=== PATIENT | female | born 1985 | race African-American/Black ===

== ENCOUNTER 2019-12-31 19:00 | Inpatient (IN) | payer OTHER ==
[2019-12-31 20:38] VITALS: BMI 34.5
[2019-12-31 20:41] LABS: BASO % 0.4 % (0-2.0); EOS % 0.8 % (0-4.5); HEMATOCRIT 34.6 % (32.4-45.2); HEMOGLOBIN 11.4 GM/dL (10.7-15.3); LYMPH % 16.3 % (8-40); MCH 26.8 pg (25.7-33.7); MCHC 33.1 g/dl (32.0-36.0); MEAN CELL VOLUME 81.1 fl (80-96); MEAN PLT VOLUME 9.1 fl (7.5-11.1); MONO % 8.1 % (3.8-10.2); NEUT % 74.4 % (42.8-82.8); PLATELET COUNT 224 K/MM3 (134-434); RBC 4.26 M/mm3 (3.60-5.2); RDW 14.7 % (11.6-15.6); WHITE BLOOD COUNT 11.8 K/mm3 (4.0-10.0)
[2019-12-31 20:52] LABS: INR 1.03 (0.83-1.09); PROTHROMBIN TIME (PATIENT) 12.1 SEC (9.7-13.0)
[2019-12-31 20:54] LABS: ACTIVATED PTT 29.6 SECONDS (25.2-36.5)
[2019-12-31] MEDS ORDERED: DINOPROSTONE 10 MG VAGINAL SUPPOSITORY VG ONE (21:08)
--- NOTE | 2019-12-31 21:16 | HP ---
Past Medical History - Admission History Source: Patient - Past Medical History ...: 5 ...Para: 3 ...Term: 3 ...: 0 ...Spon : 0 ...Induced : 1 ...Living Children: 3 ...Multiple Gestation: 0 ...LMP: 03/24/19 ... Weeks Gestation by Dates: 40.2 ...EDC by Dates: 12/29/19 ...EDC by Sono: 01/04/20 - Past Surgical History Past Surgical History: Yes: None Hx Myomectomy: No Hx Transabdominal Cerclage: No - Smoking History Smoking history: Never smoked Have you smoked in the past 12 months: No - Alcohol/Substance Use Hx Alcohol Use: No Home Medications - Allergies Allergies/Adverse Reactions: Allergies Allergy/AdvReac Type Severity Reaction Status Date / Time No Known Allergies Allergy Verified 12/31/19 19:39 - Home Medications Home Medications: Ambulatory Orders NK [No Known Home Medication] 12/31/19 Review of Systems - Review of Systems Constitutional: reports: No Symptoms Cardiovascular: reports: No Symptoms Respiratory: reports: No Symptoms Gastrointestinal: reports: No Symptoms Genitourinary: reports: No Symptoms Physical Exam - Maternity Vital Signs: Vital Signs Temperature 98.3 F 12/31/19 19:00 Pulse Rate 68 12/31/19 19:00 Respiratory Rate 20 12/31/19 19:00 Blood Pressure 123/75 12/31/19 19:00 O2 Sat by Pulse Oximetry (%) Constitutional: Yes: Well Nourished Cardiovascular: Yes: WNL Lungs: Clear to auscultation - Abdominal Exam/OB Fundal Height: 39 Number of Fetuses: Single Presentation: Vertex Contractions: Yes Regularity: Irregular Intensity: Unaware Monitor Mode: External Heart Rate (range): 140 Category: I Accelerations: Uniform Decelerations: None - Vaginal Exam/OB Dilatation (cm): 1 Effacement (%): 0 Amniotic Membrane Status: Intact Station: -3 Hemorrhage Risk Assessment - Risk Factors Medium Risk Factors: Yes: None High Risk Factors: Yes: None Risk Score: 1 Risk Level: Medium Risk Assessment/Plan [id number] @ 40w2d,here for Induction of labor GBS negative,AMA,NIPS Negative,obesity, Echogenic focus in heart-Feal ECHO wnl Poor historian,does not remember most of history. Admit to labor and delivery labs Informed consent,including posibility of csection, blood transfusion also discussed, patient understands, verbalised understanding. Cervidil pain management discussed anticipate vaginal delivery
[2019-12-31 21:17] LABS: ALBUMIN 2.9 g/dl (3.4-5.0); BILIRUBIN,TOTAL 0.2 mg/dL (0.2-1); CALCIUM 8.7 mg/dL (8.5-10.1); CREATININE 0.6 mg/dL (0.55-1.3); TOT PROT 7.1 g/dl (6.4-8.2)
[2019-12-31] MEDS: ELECTROLYTE-148 SOLN 1,000 ML IV SCH (22:00)
[2020-01-01] MEDS: ELECTROLYTE-148 SOLN 1,000 ML IV SCH ×3 (06:00→20:35)
[2020-01-01] MEDS ORDERED: OXYTOCIN 30 UNITS in 0.9% NS 30 UNIT/500 ML INFUS.BAG IVPB ONE ×2 (09:37→20:28)
[2020-01-01] MEDS ORDERED: OXYTOCIN 30 UNITS in 0.9% NS 30 UNIT/500 ML INFUS.BAG IVPB SCH (09:40)
--- NOTE | 2020-01-01 10:02 | PD.OB.PROG ---
Past Medical History - Primary Care Physician PCP:: Karen Pierre Documenting Provider Type: Laborist - Admission Chief Complaint: Induction; to assess further plans. History of Present Illness: Multiparous, term. Cervidil last night. Some ctx. FH is cat 1. Limitations to Obtaining History: No Limitations - Nursing Documentation Maternal Triage Index: Maternal Triage Index ( Priority 5, Requesting MFTI) Hemorrhage Risk Assessment: Risk Level Low Risk High Level Risk Factors for None Hemorrhage Medium Level Risk Factors for None of the above Hemorrhage Low Level Risk Factors for No previous uterine incis,Pickard Pregnaancy, Hemorrhage Four (4) or less previous,No known bleeding,No history of PPH Nursing Documentation Reviewed: Yes - Past Medical History COUNTER HELPER: Denies/None Cardio/Vascular: Denies/None Pulmonary: Denies/None Gastrointestinal: Denies/None Hepatobiliary: Denies/None Renal/: Denies/None ...: 5 ...Para: 3 ...Term: 3 ...: 0 ...Spon : 0 ...Induced : 1 ...Living Children: 3 ...Multiple Gestation: 0 ...LMP: 03/24/19 ... Weeks Gestation by Dates: 40.2 ...EDC by Dates: 12/29/19 ...EDC by Sono: 01/04/20 Heme/Onc: Denies/None Infectious Disease: Denies/None Psych: Denies/None Musculoskeletal: Denies/None Rheumatology: Denies/None ENT: Denies/None Endocrine: Denies/None Dermatology: Denies/None - Past Surgical History Past Surgical History: Yes: None - Smoking History Smoking history: Never smoked Have you smoked in the past 12 months: No - Alcohol/Substance Use Hx Alcohol Use: No Review of Systems - Review of Systems Constitutional: reports: No Symptoms Eyes: reports: No Symptoms HENT: reports: No Symptoms Neck: reports: No Symptoms Cardiovascular: reports: No Symptoms Respiratory: reports: No Symptoms Gastrointestinal: reports: No Symptoms Genitourinary: reports: No Symptoms Breasts: reports: No Symptoms Reported Musculoskeletal: reports: No Symptoms Integumentary: reports: No Symptoms Neurological: reports: No Symptoms Endocrine: reports: No Symptoms Hematology/Lymphatic: reports: No Symptoms Psychiatric: reports: No Symptoms Physical Exam - Obstetrical Vital Signs: Vital Signs Temperature 98.1 F 10/13/20 08:00 Pulse Rate 89 01/01/20 08:00 Respiratory Rate 20 01/01/20 08:00 Blood Pressure 103/67 01/01/20 08:00 O2 Sat by Pulse Oximetry (%) Constitutional: Yes: Well Nourished, No Distress, Calm Eyes: Yes: WNL, Conjunctiva Clear, EOM Intact HENT: Yes: WNL, Atraumatic, Normocephalic Neck: Yes: WNL, Supple, Trachea Midline Cardiovascular: Yes: WNL, Regular Rate and Rhythm Lungs: Clear to auscultation Breast(s): Yes: WNL - Abdominal Exam/OB Fundal Height: 40 Number of Fetuses: Single Presentation: Vertex Contractions: Yes Regularity: Regular Intensity: Mild Monitor Mode: External Heart Rate (range): 140 Category: I Accelerations: Uniform Decelerations: None - Vaginal Exam/OB Vaginal Exam Deferred: No Vaginal Bleeding: No Dilatation (cm): 2 Effacement (%): 50 Amniotic Membrane Status: Intact Station: -2 - Physical Exam Musculoskeletal: Yes: WNL Extremities: Yes: WNL Integumentary: Yes: WNL ...Motor Strength: WNL Psychiatric: Yes: WNL - Labs Lab Results: CBC, BMP 12/31/19 20:28 12/31/19 20:28 Problem List - Problems (1) Encounter for induction of labor Code(s): Z34.90 - ENCNTR FOR SUPRVSN OF NORMAL , UNSP, UNSP TRIMESTER Assessment/Plan Patient is here for induction. On examination she is "inducible". heart category 1. Bedside sonogram done to assess presenting part. It is vertex. Discussed with Dr. Castillo. My recommendation is to augment labor with oxytocin and do artificial rupture of membranes with the head comes down. Discussed with patient as well. She understands and consents. Questions answered.
[2020-01-01] MEDS ORDERED: BUTORPHANOL TARTRATE 2 MG/ML VIAL ONE (14:25)
[2020-01-01] MEDS ORDERED: BUTORPHANOL TARTRATE 2 MG/ML VIAL IVPB ONE (14:30)
--- NOTE | 2020-01-01 17:57 | PN ---
Progress Note (short form) - Note Progress Note: Patient without complaints FHR- 120, moderate variability, positive accelerations, no decelerations [place]-q 2-4 VE- 3cm/40%/-3 Continue pitocin anticipate vaginal delivery
[2020-01-01] MEDS ORDERED: DOCUSATE SODIUM 100 MG CAPSULE (FP) PO STA (20:51)
[2020-01-02] MEDS: ELECTROLYTE-148 SOLN 1,000 ML IV SCH (04:00)
--- NOTE | 2020-01-02 06:23 | PN ---
Progress Note (short form) - Note Progress Note: Patient without complaints Feeling contractions AROM - minimal fluid FHR- 140, moderate variability, positive accelerations, no decelerations, cat1 [place]- q4 min VE 3-4 cm/50%/-2 Discussed EFW at several occasions Continue pitocin Anticipate vaginal delivery Possibility of csection discussed with patient Reevalute
[2020-01-02] MEDS ORDERED: FENTANYL/BUPIVACAINE/NS/PF - PCEA - 50 ML DISP.SYRIN EP ONE (07:42)
[2020-01-02] MEDS ORDERED: PCA PUMP NR ONE (07:42)
[2020-01-02] MEDS ORDERED: OXYTOCIN 20 UNITS in 0.9% NS 20 UNIT/1,000 ML INFUS.BAG IV ONE ×2 (07:55→10:56)
[2020-01-02] MEDS: FENTANYL/BUPIVACAINE/NS/PF - PCEA - 50 ML DISP.SYRIN EP SCH (08:45)
--- NOTE | 2020-01-02 09:18 | PN ---
Progress Note (short form) - Note Progress Note: Patient s/p epidural Earlier had variable decelerations Pitocin decreased and the stopped, IV bolus and O2 given VE 9cm/70%/+1 Patient feeling vaginal pressure FHR-140,moderate variability, positive accelerations, no decelerations cat1 [place]-q2-4 Anticipate vaginal delivery
[2020-01-02] MEDS: OXYTOCIN 20 UNITS in 0.9% NS 20 UNIT/1,000 ML INFUS.BAG IV SCH ×2 (10:03→11:04)
[2020-01-02] MEDS ORDERED: BENZOCAINE 20% 57 GM BOTTLE TP PRN (10:17)
[2020-01-02] MEDS ORDERED: WITCH HAZEL 50% (TUCKS) 40 PAD/JAR PAD TP PRN (10:17)
[2020-01-02] MEDS ORDERED: METHYLERGONOVINE MALEATE 0.2 MG/1 ML AMP IM PRN (10:17)
[2020-01-02] MEDS ORDERED: BENZOCAINE 28 GM HEMORRHOIDAL OINTMENT TP PRN (10:17)
[2020-01-02] MEDS ORDERED: BISACODYL 10 MG SUPP.RECT RC PRN (10:17)
[2020-01-02] MEDS ORDERED: ACETAMINOPHEN 1000 MG/100 ML VIAL (NON FORMULARY) IVPB ONE (10:22)
--- NOTE | 2020-01-02 10:27 | PN ---
Delivery - Delivery Vaginal Delivery: No Problems, Spontaneous Episiotomy/Laceration: Perineal Extension/lac, 1st degree EBL (cc): 350 Delivery, Single - Stages of Labor Date of Delivery: 01/02/20 Date Placenta Delivered: 01/02/20 Placenta: Yes: Spontaneous - Condition of Infant Gender: Male Position: Left, OA - Feeding Plan Initial Plan: Elected not to breastfeed exclusively throughout hospitalization Remarks - Remarks Remarks: Patient feeling urge to push, Spontaneous vaginal delivery of a baby boy in cephalic presentation,Baby delivered atraumatically. Nuchal cord x1, reduced over the head. baby delivered, cord clamped and cut. cord gases sent. cord blood sent. Pitocin started. Placenta delivered intact and spontaneously. First degree midline laceration repaired with 2.0 chromic. Hemostasis confirmed. Transfer to maternity
[2020-01-02 11:08] LABS: CORD BASE EXCESS -7.6 mmol/L (0-2); CORD HCO3 17.6 mmHg (20-29); CORD PCO2 34.7 mmHg (30-78); CORD pH 7.324 (7.14-7.44)
[2020-01-02 11:11] LABS: CORD BASE EXCESS -6.3 mmol/L (0-2); CORD HCO3 20.2 mmHg (20-29); CORD PCO2 43.9 mmHg (30-78); CORD pH 7.28 (7.14-7.44)
[2020-01-02] MEDS ORDERED: NALOXONE HCL 0.4 MG/ML VIAL IVPUSH PRN (11:18)
[2020-01-02] MEDS: IBUPROFEN 600 MG TABLET (FP) PO PRN (14:40)
[2020-01-02] MEDS: ACETAMINOPHEN 325 MG TABLET (FP) PO PRN (14:40)
[2020-01-03 08:52] LABS: BASO % 0.2 % (0-2.0); EOS % 0.4 % (0-4.5); HEMOGLOBIN 9.3 GM/dL (10.7-15.3); LYMPH % 14.5 % (8-40); MCH 26.6 pg (25.7-33.7); MCHC 33.1 g/dl (32.0-36.0); MEAN CELL VOLUME 80.3 fl (80-96); MEAN PLT VOLUME 9.3 fl (7.5-11.1); NEUT % 76.9 % (42.8-82.8); PLATELET COUNT 209 K/MM3 (134-434); RBC 3.49 M/mm3 (3.60-5.2); RDW 14.8 % (11.6-15.6); WHITE BLOOD COUNT 16.8 K/mm3 (4.0-10.0)
[2020-01-03] MEDS: PRENATAL VITAMINS W/ FOLIC ACID TABLET (FP) PO SCH (10:29)
[2020-01-03] MEDS: ACETAMINOPHEN 325 MG TABLET (FP) PO PRN (12:05)
[2020-01-03] MEDS: IBUPROFEN 600 MG TABLET (FP) PO PRN (12:06)
--- NOTE | 2020-01-03 18:04 | PN ---
Progress Note (short form) - Note Progress Note: Patient without complaints, tolerating diet minimal lochial flow VS wnl Heart and luns wnl Abdomen soft, uterus well contracted Minimal lochial flow no calf tenderness A/P- PPD#1 s/p vaginal delivery Discharge home tomorrow
--- NOTE | 2020-01-03 18:09 | DS ---
Physical Exam-CAR COUPLER Vital Signs: Vital Signs Temperature 98.3 F 01/03/20 13:35 Pulse Rate 87 01/03/20 13:35 Respiratory Rate 18 01/03/20 13:35 Blood Pressure 120/72 01/03/20 13:35 O2 Sat by Pulse Oximetry (%) 100 01/03/20 13:35 Constitutional: Yes: Well Nourished Cardiovascular: Yes: WNL Respiratory: Yes: WNL Gastrointestinal: Yes: WNL ....Post : Yes: Uterus firm Breast(s): Yes: WNL Musculoskeletal: Yes: WNL Extremities: Yes: WNL Labs: CBC, BMP 01/03/20 08:00 12/31/19 20:28 Delivery - Delivery Vaginal Delivery: No Problems, Spontaneous Type of Anesthesia: Epidural Episiotomy/Laceration: Perineal Extension/lac, 1st degree EBL (cc): 350 Delivery, Single - Stages of Labor Date 1st Stage Initiatied: 01/01/20 Time 1st Stage Initiated: 13:00 Date 2nd Stage Initiated: 01/02/20 Time 2nd Stage Initiated: 09:40 Date of Delivery: 01/02/20 Time of Delivery: 09:53 Time Placenta Delivered: 10:02 Placenta: Yes: Spontaneous - Condition of Managed Security Sales Consultant/Supply Clerk Present: No Gender: Male Weight: 3.345 kg Position: Left, OA Total Hours ROM (Hrs/Mins): 3hrs 52min - 1 Minute Total Score: 9 5 Minutes Total Score: 9 - [place] Feeding Plan Initial Plan: Elected not to breastfeed exclusively throughout hospitalization Remarks - Remarks Remarks: PPD#1 s/p vaginal delivery asymptomatic Discharge home to [place] follow up at health center in 1 week then 6 weeks. Home on ferrous sulfate, ibuprofen and colace Discharge Summary Problems reviewed: Yes Reason For Visit: INDUCTION Current Active Problems Encounter for induction of labor (Acute) Procedures: Principal: Hospital Course: Patient s/p vaginal delivery PP benign Plan of Treatment: Home on ferrous sulfate 325 mg 1tab po daily colace 100mg 1 tab po daily ibuprofen 600mg 1 tab po q6 hrs prn pain Follow up with health center in 1 week then 6 week Return to ER if fever >100.4, severe vaginal bleeding, severe abdominal pain or any unusual symptoms Condition: Stable - Instructions Diet, Activity, Other Instructions: regular Home on ferrous sulfate 325 mg 1tab po daily colace 100mg 1 tab po daily ibuprofen 600mg 1 tab po q6 hrs prn pain Follow up with health center in 1 week then 6 week Return to ER if fever >100.4, severe vaginal bleeding, severe abdominal pain or any unusual symptoms No sex, nothing in vagina, no tampons,no tub baths - Home Medications Comprehensive Discharge Medication List: Ambulatory Orders NK [No Known Home Medication] 12/31/19 Prescription Drug Monitoring Program (I-STOP) results: I-STOP not reviewed
[2020-01-03] MEDS: FENTANYL/BUPIVACAINE/NS/PF - PCEA - 50 ML DISP.SYRIN EP SCH (21:42)
[2020-01-03] MEDS ORDERED: SENNOSIDES/DOCUSATE COMBO (SENNA PLUS) TABLET (UD) PO PRN (22:00)
[2020-01-04] MEDS: OXYTOCIN 20 UNITS in 0.9% NS 20 UNIT/1,000 ML INFUS.BAG IV SCH (03:58)
[2020-01-04] MEDS: ACETAMINOPHEN 325 MG TABLET (FP) PO PRN (04:55)
[2020-01-04] MEDS: IBUPROFEN 600 MG TABLET (FP) PO PRN (04:56)
[2020-01-04 09:24] VITALS: BP 113/73; PULSE 76; TEMP 98.5
[2020-01-04] MEDS: PRENATAL VITAMINS W/ FOLIC ACID TABLET (FP) PO SCH (10:32)
== END 2020-01-04 18:10 | disposition home or self-care (01) | DRG 560 ==
LOC: JLDR 19:00 → J3W 01-02 12:15
PROVIDERS: ADMIT Obstetrics & Gynecology; ATTEND Obstetrics & Gynecology
PROC: 3E0P7VZ Introduction of Hormone into Female Reproductive, Via Natural or Artificial Opening (ICD-10-PCS; 2019-12-31)
PROC: 10E0XZZ Delivery of Products of Conception, External Approach (ICD-10-PCS; principal; 2020-01-02)
PROC: 0W8NXZZ Division of Female Perineum, External Approach (ICD-10-PCS; 2020-01-02)
PROC: 0HQ9XZZ Repair Perineum Skin, External Approach (ICD-10-PCS; 2020-01-02)
DX: O70.0 First degree perineal laceration during delivery (principal); O69.81X0 Labor and delivery complicated by cord around neck, without compression, not applicable or unspecified; O99.214 Obesity complicating childbirth; E66.9 Obesity, unspecified; O28.3 Abnormal ultrasonic finding on antenatal screening of mother; Z37.0 Single live birth; Z3A.39 39 weeks gestation of pregnancy
CPT/HCPCS: 36415; 36600; 59409; 80053; 82803; 85025; 85610; 85730; 86780; 86850; 86900; 86901